=== PATIENT | male | born 1960 | race Caucasian/White ===

== ENCOUNTER 2022-10-28 09:14 | Inpatient (IN) ==
[~2022-10-28 09:14] MED LIST: Buffered Lidocaine 1% SYRIN 1 ml INTRADERM ONE; Ertapenem 1 GM in NS 0.9% 50 ML BAG IVPB SCH; HYDROmorphone 1 MG/1 ML SYRINGE IV PRN; Lactated Ringers 1000 ml BAG 1,000 ML IV SCH; Naloxone 0.4 mg VIAL 0.4 mg/ml 1 ml VIAL IV PRN; Prochlorperazine 5 mg/ml 2 ml VIAL (10 mg) IV PRN
[2022-10-28] MEDS ORDERED: Rocuronium 50 mg VIAL 10 mg/ml 5 ml VIAL (50 mg) ONE ×3 (09:55→13:47)
[2022-10-28 10:03] LABS: Rapid COVID-19 Molecular Undetected (Undetected)
[2022-10-28] MEDS ORDERED: Midazolam 2 mg/2 ml VIAL 1 mg/ml 2 ml VIAL (2 mg) ONE (10:03)
[2022-10-28] MEDS ORDERED: Propofol 10 MG/ML 20 ML BTL ONE (10:03)
[2022-10-28] MEDS ORDERED: Lidocaine 2% PF 5 ML VIAL ONE (10:03)
[2022-10-28] MEDS ORDERED: fentaNYL 250 mcg/5 ml 50 MCG/ML 5 ml VIAL (250 MCG) ONE (10:03)
[2022-10-28] MEDS ORDERED: Bupivacaine 0.5% SDV PF 30ML VIAL ONE (10:41)
[2022-10-28] MEDS ORDERED: Lidocaine 1% w EPI 1:100,000 MDV 20 ML VIAL ONE (10:41)
[2022-10-28] MEDS ORDERED: Acetaminophen IV 1 GM/100ML 1,000 MG/100 ML BAG IV ONE ×2 (11:53→17:42)
[2022-10-28] MEDS ORDERED: Ondansetron 4 mg VIAL 2 MG/ML 2 ml VIAL ONE (11:53)
[2022-10-28] MEDS ORDERED: Dexamethasone IV 4 MG/ML VIAL 1 ml VIAL ONE (11:53)
[2022-10-28] MEDS ORDERED: HYDROmorphone 1 MG/1 ML SYRINGE ONE (17:06)
[2022-10-28] MEDS ORDERED: fentaNYL 100 mcg/2 ml 50 MCG/ML VIAL ONE (17:39)
[2022-10-28] MEDS: fentaNYL 100 mcg/2 ml 50 MCG/ML VIAL IV PRN ×2 (17:40→18:30)
[2022-10-28] MEDS: Acetaminophen IV 1 GM/100ML 1,000 MG/100 ML BAG IV SCH (17:46)
[2022-10-28 20:30] LABS: High Sensitivity Troponin 1 Hr 18 pg/mL (<20)
[2022-10-28] MEDS: HYDROmorphone 0.5 MG/0.5 ML SYRINGE IV SLOW PU PRN (21:22)
[2022-10-28] MEDS: Ondansetron 4 mg VIAL 2 MG/ML 2 ml VIAL IV PRN (21:22)
[2022-10-28 22:04] LABS: High Sensitivity Troponin 3 Hr 11 pg/mL (<20)
[2022-10-28 22:18] LABS: Hematocrit 42.5 % (38-53); Hemoglobin 14.6 g/dL (13.2-16.3)
[2022-10-29] MEDS: Acetaminophen IV 1 GM/100ML 1,000 MG/100 ML BAG IV SCH ×3 (01:03→20:11)
[2022-10-29] MEDS: HYDROmorphone 0.5 MG/0.5 ML SYRINGE IV SLOW PU PRN (04:25)
[2022-10-30] MEDS: Acetaminophen IV 1 GM/100ML 1,000 MG/100 ML BAG IV SCH ×2 (03:48→11:00)
[2022-10-30] MEDS: Ondansetron 4 mg VIAL 2 MG/ML 2 ml VIAL IV PRN (03:49)
[2022-10-30] MEDS: HYDROmorphone 0.5 MG/0.5 ML SYRINGE IV SLOW PU PRN (03:49)
[2022-10-30] MEDS: Heparin 5000 UNITS/ML 1 mL VIAL SUBCUT SCH ×2 (12:09→14:28)
[2022-10-30 14:38] VITALS: BP 126/70
== END 2022-10-30 16:35 | disposition home or self-care (01) | DRG 223 ==
LOC: AA 09:14 → SSU 19:41
PROVIDERS: ADMIT Surgery; ATTEND Surgery